=== PATIENT | female | born 1960 | race Caucasian/White ===

== ENCOUNTER 2018-06-05 14:48 | Inpatient (IN) | payer OTHER ==
[~2018-06-05] VITALS: Ht 172.7 cm; Wt 99.8 kg
[2018-06-05] VITALS: BP 119/58
[2018-06-05] MEDS ORDERED: SODIUM CHLORIDE 0.9% 1,000 ML IV ONE (16:07)
[2018-06-05] MEDS ORDERED: ONDANSETRON HCL 4MG/2ML INJ IV STA (16:07)
[2018-06-05] MEDS ORDERED: MECLIZINE 25MG TABLET PO ONE ×2 (16:15→18:00)
[2018-06-05 16:41] LABS: BASOPHILS % 0.6 % (0.0-2.0); EOSINOPHILS % 0.2 % (0.0-5.0); HEMATOCRIT. 33.7 % (36.0-48.0); HEMOGLOBIN. 10.8 g/dL (12.0-16.0); LYMPHOCYTES % 8.7 % (20.0-50.0); MEAN CORPUSCULAR HEMOGLOBIN 23.4 pg (28.0-32.0); MEAN PLATELET VOLUME 8.1 fl (7.4-10.4); MONOCYTES % 2.6 % (2.0-8.0); NEUTROPHILS % 87.9 % (40.0-76.0); PLATELET 320 x1000/uL (130-400); RED BLOOD CELL COUNT 4.62 mill/uL (4.2-5.4)
[2018-06-05 16:45] LABS: CHLORIDE 105 mEq/L (98-107)
[2018-06-05] MEDS ORDERED: ONDANSETRON HCL 4MG/2ML INJ IV ONE (18:00)
[2018-06-05] MEDS ORDERED: MORPHINE SULFATE 4 MG/ML CPJ (NOT FOR IM USE) IV PRN (18:30)
[2018-06-05] MEDS ORDERED: GUAIFENESIN 200MG/10ML SUGAR FREE UDC PO PRN (18:30)
[2018-06-05] MEDS ORDERED: DOCUSATE SODIUM 100MG CAPSULE PO PRN (18:30)
[2018-06-05] MEDS ORDERED: HYDROCODONE/ACETAMINOPHEN 5/325MG TABLET PO PRN (18:30)
[2018-06-05] MEDS ORDERED: DIPHENHYDRAMINE 50MG/ML VIAL IV PRN (18:30)
[2018-06-05] MEDS ORDERED: NA PHOS,M-B/NA PHOS,DI-BA ENEMA 118ML PR PRN (18:30)
[2018-06-05] MEDS ORDERED: ONDANSETRON HCL 4MG/2ML INJ IV PRN (18:30)
[2018-06-05] MEDS ORDERED: CLONIDINE 0.1MG TABLET PO PRN (18:30)
[2018-06-05] MEDS ORDERED: MAGNESIUM/ALUMINUM HYDROXIDE/SIMETHICONE 30ML UDC PO PRN (18:30)
[2018-06-05] MEDS ORDERED: IPRATROPIUM/ALBUTEROL 0.5-3(2.5)MG/3ML NEB INH PRN (18:30)
[2018-06-05] MEDS ORDERED: LORAZEPAM 2MG/ML CPJ IV PRN (18:30)
[2018-06-05] MEDS ORDERED: MECLIZINE 25MG TABLET PO PRN (18:45)
[2018-06-05 21:15] VITALS: BP_SYST 148; BP_SYST 149; BP_DIAS 80
[2018-06-05] MEDS ORDERED: [UNRECOGNIZED DRUG - OTHER] PO (21:45)
[2018-06-05] MEDS ORDERED: OMEP20TA2 PO (21:48)
[2018-06-05] MEDS: ACETAMINOPHEN 325MG TABLET PO PRN (22:00)
[2018-06-05] MEDS: SODIUM CHLORIDE 0.45% 1,000 ML IV SCH (22:32)
[2018-06-05 23:54] LABS: CREATINE KINASE 66 IU/L (26-192); CREATINE KINASE MB FRACTION < 1.0 ng/mL (0.5-3.6)
[2018-06-06] VITALS: BP 119/58
[2018-06-06 04:00] VITALS: BP 131/73
[2018-06-06 06:54] LABS: BASOPHILS % 0.5 % (0.0-2.0); EOSINOPHILS % 0.7 % (0.0-5.0); HEMOGLOBIN. 10.4 g/dL (12.0-16.0); LYMPHOCYTES % 25.6 % (20.0-50.0); MEAN CORPUSCULAR HEMOGLOBIN 23.2 pg (28.0-32.0); MEAN CORPUSCULAR VOLUME 71.8 fL (81.0-99.0); MEAN PLATELET VOLUME 8.2 fl (7.4-10.4); MONOCYTES % 6.9 % (2.0-8.0); NEUTROPHILS % 66.3 % (40.0-76.0); PLATELET 318 x1000/uL (130-400); RED BLOOD CELL COUNT 4.46 mill/uL (4.2-5.4); RED CELL DISTRIBUTION WIDTH 15.9 % (11.6-14.6)
[2018-06-06 07:15] LABS: CHLORIDE 108 mEq/L (98-107)
[2018-06-06 07:25] LABS: CREATINE KINASE 62 IU/L (26-192); CREATINE KINASE MB FRACTION < 1.0 ng/mL (0.5-3.6); HDL CHOLESTEROL 50 mg/dL (40-59); LDL CHOLESTEROL 166 mg/dL (5-100); T4 FREE 1.07 ng/dL (0.76-1.46)
[2018-06-06 08:00] VITALS: BP 123/60
[2018-06-06] MEDS: ASPIRIN 81MG EC TABLET PO SCH (08:15)
[2018-06-06] MEDS ORDERED: ENOXAPARIN 40MG/0.4ML SYR SUBCUT SCH (09:00)
[2018-06-06 12:00] VITALS: BP 141/78
[2018-06-06 16:00] VITALS: BP 138/76
[2018-06-06 17:05] LABS: CREATINE KINASE 55 IU/L (26-192); CREATINE KINASE MB FRACTION < 1.0 ng/mL (0.5-3.6)
[2018-06-06] MEDS: PANTOPRAZOLE 40MG DR TABLET PO SCH (19:06)
[2018-06-06 20:00] VITALS: BP_SYST 123; BP_SYST 141; BP_SYST 145; BP_DIAS 69; BP_DIAS 72; BP_DIAS 90
[2018-06-06] MEDS: SODIUM CHLORIDE 0.45% 1,000 ML IV SCH (21:10)
[2018-06-07] VITALS: BP 120/60
[2018-06-07 00:21] LABS: CREATINE KINASE 49 IU/L (26-192); CREATINE KINASE MB FRACTION < 1.0 ng/mL (0.5-3.6)
[2018-06-07 04:00] VITALS: BP 121/75
[2018-06-07 08:00] VITALS: BP 125/60
[2018-06-07 08:06] LABS: HEMATOCRIT 31.2 % (36.0-48.0); HEMOGLOBIN 10.3 g/dL (12.0-16.0); MEAN CORPUSCULAR HEMOGLOBIN 23.9 pg (28.0-32.0); MEAN CORPUSCULAR VOLUME 72.5 fL (81.0-99.0); PLATELET 291 x1000/uL (130-400); RED BLOOD CELL COUNT 4.31 mill/uL (4.2-5.4)
[2018-06-07 08:14] LABS: CHLORIDE 107 mEq/L (98-107)
[2018-06-07 08:26] LABS: CREATINE KINASE 45 IU/L (26-192); CREATINE KINASE MB FRACTION < 1.0 ng/mL (0.5-3.6)
[2018-06-07] MEDS ORDERED: ENOXAPARIN 30MG/0.3ML SYR SUBCUT SCH (09:00)
[2018-06-07] MEDS: PANTOPRAZOLE 40MG DR TABLET PO SCH (09:30)
[2018-06-07] MEDS: ASPIRIN 81MG EC TABLET PO SCH (09:30)
[2018-06-07 12:00] VITALS: BP 144/69
[2018-06-07] MEDS: ACETAMINOPHEN 325MG TABLET PO PRN (13:10)
[2018-06-07] MEDS: SODIUM CHLORIDE 0.45% 1,000 ML IV SCH (14:00)
[2018-06-07 14:38] VITALS: BP 144/69
== END 2018-06-07 18:00 | disposition home or self-care (01) | DRG 74 ==
LOC: ER 15:34 → 6WST 17:57 → ENRESERV 19:46 → 6WST 22:23
PROVIDERS: ADMIT Internal Medicine; ATTEND Internal Medicine
DX: G90.8 Other disorders of autonomic nervous system (principal); D64.9 Anemia, unspecified; E78.5 Hyperlipidemia, unspecified; I10 Essential (primary) hypertension
CPT/HCPCS: 36415; 71045; 80048; 80061; 82550; 82553; 83036; 83880; 84439; 84443; 84484; 85027; 85379; 93005; 93306; 93970; 96361; 96374; 96375; 99285; J1650; J2405; J7030; J8597